=== PATIENT | male | born 1945 | race Caucasian/White ===

== ENCOUNTER 2021-09-25 08:30 | Emergency (ER) | payer MEDICARE, BC, SELFPAY ==
[2021-09-25 08:36] VITALS: BP 112/62; PULSE 70; RESP 16; O2SAT 95; BMI 22.6
--- NOTE | 2021-09-25 08:44 | ED.GENADULT ---
HPI - General Adult General Time Seen by Provider: 08:44 Date Seen: 09/25/21 Chief complaint: Extremity Pain/Injury, Upper Stated complaint: Middle right finger dislocated Time Seen by Provider: 09/25/21 08:43 Source: patient and RN notes reviewed Mode of arrival: ambulatory Limitations: no limitations History of Present Illness HPI narrative: Patient is a 76-year-old male presenting to the ER with complaint of right 3rd finger pain and deformity after a fall. He simply tripped. When he fell he injured this 3rd finger. There is an open wound on the palmar surface near the deformity. He did get an abrasion on his elbow and a bruise on his hip area but denies any pain within the bones themselves with ambulation. He did not hit his head, no loss of consciousness. No blood thinners. His only complaint is the right 3rd finger. He tried to reduce the deformity himself at home but could not. With initial evaluation of patient, I did try just a brief period of slight counter traction in this was not reducing easily; thus, reviewed with patient that we really needed to x-ray this prior to further manipulation. No difficulty breathing, no chest or abdominal pain. No neck or back pain. Tdap last given 04/15/2012. Thus patient will be given his Tdap as he is very close to the end of his current 10 year period. Onset (ago): minute(s) Treatments prior to arrival: none Related Data Previous Rx's Medication Instructions Recorded cephalexin 500 mg tablet 500 mg PO TID #15 tabs 09/25/21 Allergies Allergy/AdvReac Type Severity Reaction Status Date / Time ciprofloxacin [From Cipro] Allergy Verified 09/25/21 08:36 Review of Systems Status of ROS: Reports: 6 or more systems reviewed and unremarkable except as noted in History and below Exam Const: Vital Signs, click to edit/add: Vital Signs - 24 hr 09/25/21 08:36 Pulse Rate [Pulse Oximeter] 70 Respiratory Rate 16 Blood Pressure [Le ft Upper Arm] 112/62 Pulse Oximetry 95 Oxygen Delivery Me thod Room Air Documenting provider has reviewed patient's vital signs: yes Common normals: no apparent distress, average body habitus, oriented x3, no limitations, healthy appearing, alert and well nourished General appearance: cooperative, comfortable and well kempt HENMT: Common normals: normocephalic, head/scalp atraumatic, hearing grossly normal bilaterally and external ears normal Head and scalp: normocephalic and atraumatic External ear: external ears normal Eye: Common normals: PERRL, EOMs intact bilaterally, conjunctivae normal and no scleral icterus Conjunctiva: conjunctiva(e) normal Pupil: PERRL Resp: Common normals: normal respiratory effort, no retractions, no use of accessory muscles and clear to auscultation bilaterally Auscultation: clear to auscultation bilaterally Cardio: Common normals: regular rate, regular rhythm, S1 normal heart sound, S2 normal heart sound, no gallops, no clicks and no murmurs Rate: regular rate Rhythm: regular rhythm Heart sounds: S1 normal and S2 normal Extremity: Other: He has a deformity of his proximal right 3rd finger. This is not readily reducible. 5 mL of bupivacaine 0.25% were drawn up and given as a digital block. There is a little tissue opening on the palmar surface just around that PIP joint. There is some dried blood on this hand and this is an open wound of this right 3rd finger. He still had normal sensation distally of this finger before the digital block. My presumption is that this may be a fracture and not just a simple dislocation. Neuro: Common normals: oriented x3 Sensorium/orientation: alert Psych: Appearance: well kempt Course Course Hospital Course: We will await the digital block to take effect and obtain an x-ray of this right 3rd finger to visualize the abnormality. If there is a fracture, certainly will need antibiotics. Vital Signs Vital signs: Initial Vital Signs Temperature Source Temporal Artery Scan 09/25/21 08:36 Pulse Rate 70 09/25/21 08:36 Pulse Rhythm 09/25/21 08:36 Respiratory Rate 16 09/25/21 08:36 Blood Pressure 112/62 09/25/21 08:36 Blood Pressure Mean 78 09/25/21 08:36 Blood Pressure Position Supine 09/25/21 08:36 Pulse Oximetry 95 09/25/21 08:36 Oxygen Delivery Method 09/25/21 08:36 Vital Signs Pulse Rate 70 09/25/21 08:36 Respiratory Rate 16 09/25/21 08:36 Blood Pressure 112/62 09/25/21 08:36 Pulse Oximetry 95 09/25/21 08:36 Oxygen Delivery Method 09/25/21 08:36 Pulse Rate 70 09/25/21 08:36 Respiratory Rate 16 09/25/21 08:36 Blood Pressure 112/62 09/25/21 08:36 Pulse Oximetry 95 09/25/21 08:36 Oxygen Delivery Method 09/25/21 08:36 Medical Decision Making Imaging Data X-ray right 3rd finger: Attestation: I have reviewed the pertinent imaging results. My impression: Preliminary review of the x-ray shows dislocation at the PIP joint. I will wait radiology over read for full formal report. Radiologist's impression: Patient: JOVANA RIVERO Facility:?[facility] Patient ID:?[id number] Site Patient ID:?[id number]. Site :?[id number] Study:?XRay Extremity Right FINGER-09/25/2021 9:06:52 AM Ordering Physician:?Maximino Delgado Final Report: Indication: Trauma Technique: A total of three views of the right 3rd digit were acquired. Comparison: None Findings: Bones: There is a dorsal dislocation identified the PIP the right 3rd/middle finger. This is dorsal and deviated towards the ulnar side. An ossific fragment is noted anteriorly probably a volar plate avulsion injury. This is well corticated so it may be chronic. Joint spaces: Dislocation as above Soft tissues: Regional soft tissue swelling Impression: Dislocation at the PIP of the right 3rd/middle digit. Ossific fragment probably represents a volar plate fracture. That fragment is well corticated so the volar plate fracture may be nonacute Dictated by Alex Salvador MD @ 09/25/2021 9:11:32 AM (Electronic Signature) Post reduction imaging right 3rd finger: Attestation: I have reviewed the pertinent imaging results. Radiologist's impression: Patient: JOVANA RIVERO Facility:?[facility] Patient ID:?[id number] Site Patient ID:?[id number]. Site :?[id number] Study:?XRay Extremity Right FINGER 3RD DIGIT-09/25/2021 9:44:53 AM Ordering Physician:?Maximino Delgado Final Report: Indication: Postreduction Technique: Three views of the right 3rd digit were acquired Comparison: Earlier the same day Findings: The dislocation at the PIP of the right middle digit has been reduced. There is no fracture. The well corticated fragment thought to represent a fracture is no longer present and must have represented a foreign body in this area. Impression: Reduced dislocation. No fracture. Dictated by Alex Salvador MD @ 09/25/2021 9:55:49 AM (Electronic Signature) Critical Care Time Critical Care Time Critical Care Time: No Discharge Plan Discharge Clinical Impression: Dislocation of finger PIP joint Patient Disposition: Home, Self-Care Condition: Stable Instructions: Finger Dislocation (ED) Additional Instructions: May shower and wash hands but should otherwise keep this finger clean and dry. Watch the superficial wound on this finger to ensure it is not becoming infected. We will place you on antibiotics, please take them as prescribed. You need to use the splint until further advised by orthopedics. Please call the orthopedic office to get scheduled for followup and ongoing management of this finger. Phone number is [phone]. Recommend icing and elevating this finger for the next few days to help decrease swelling. May use Tylenol and ibuprofen per bottle directions if needed for discomfort. Prescriptions: New cephalexin 500 mg tablet 500 mg PO TID Qty: 15 0RF Follow Up/Referrals: James Silverio MD [Primary Care Provider] - Stand Alone [facility] Instructions Procedures Orthopedic Joint Reduction Joint #1: Time Out Performed: Yes Side: right Joint Reduction Location: finger (Right 3rd) Manipulation used?: Yes Analgesia: nerve block Local Anesthesia: bupivacaine 0.25% Amount of anesthesic used (mL): 5 Technique used: direct manipulation Post-reduction neuro vascular exam: intact Post Reduction X-Ray Obtained: Yes Post Reduction X-Ray Results: reduced Splint Applied: Yes (Large baseball splint) Patient Tolerated Procedure: well
--- NOTE | 2021-09-25 08:50 | CRLHL7_ITS ---
For Patients: As a result of the Cures Act, medical imaging exams and procedure reports are released immediately into your electronic medical record. You may view this report before your referring provider. If you have questions, please contact your health care provider. Indication: Trauma Technique: A total of three views of the right 3rd digit were acquired. Comparison: None Findings: Bones: There is a dorsal dislocation identified the PIP the right 3rd/middle finger. This is dorsal and deviated towards the ulnar side. An ossific fragment is noted anteriorly probably a volar plate avulsion injury. This is well corticated so it may be chronic. Joint spaces: Dislocation as above Soft tissues: Regional soft tissue swelling Impression: Dislocation at the PIP of the right 3rd/middle digit. Ossific fragment probably represents a volar plate fracture. That fragment is well corticated so the volar plate fracture may be nonacute Dictated by Alex Salvador MD @ 09/25/2021 9:11:32 AM (Electronically Signed)
[2021-09-25] MEDS: BUPIVACAINE 0.25% 30 ML 5 ML INJECTION (09:05)
--- NOTE | 2021-09-25 09:22 | CRLHL7_ITS ---
For Patients: As a result of the Cures Act, medical imaging exams and procedure reports are released immediately into your electronic medical record. You may view this report before your referring provider. If you have questions, please contact your health care provider. Indication: Postreduction Technique: Three views of the right 3rd digit were acquired Comparison: Earlier the same day Findings: The dislocation at the PIP of the right middle digit has been reduced. There is no fracture. The well corticated fragment thought to represent a fracture is no longer present and must have represented a foreign body in this area. Impression: Reduced dislocation. No fracture. Dictated by Alex Salvador MD @ 09/25/2021 9:55:49 AM (Electronically Signed)
[2021-09-25 10:15] VITALS: BP 123/64; PULSE 65; RESP 16; O2SAT 96
--- NOTE | 2021-09-25 10:15 | ED.NURSE ---
Patient's right middle finger cleansed with hibiclens/water solution. Bacitracin and bandaid applied. Baseball splint over finger with patient accepting of all treatments.
[2021-09-25] MEDS: TETANUS/DIPHTH/PERTUSSIS 0.5 ML SYRINGE IM (10:16)
== END 2021-09-25 10:25 | disposition home or self-care (01) ==
PROVIDERS: Emergency Provider Family Medicine; PCP Family Medicine
DX: S63.272A Dislocation of unspecified interphalangeal joint of right middle finger, initial encounter (principal); W01.0XXA Fall on same level from slipping, tripping and stumbling without subsequent striking against object, initial encounter
CPT/HCPCS: 26770; 73140; 90471; 90715; 96372; 99283; 99284; J3490

== ENCOUNTER 2021-11-14 13:00 | Outpatient (RCR) | payer MEDICARE, BC, SELFPAY ==
--- NOTE | 2021-11-04 12:35 | OT.OPOE ---
OT Outpatient Ortho Eval OT Outpatient Ortho Eval Start: 11/04/21 11:57 Freq: Status: Active Protocol: Document 11/04/21 12:04 NISREEN (Rec: 11/04/21 12:28 NISREEN [id number]) E-signed By Lucero Ortiz, OTR/L, CLT OT OP Ortho Eval Details Type Type Eval Complexity Low Outpatient History/Precautions Insurance Information Insurance Information Medicare B Current Condition/Medical Diagnosis Referring Provider Reid Roque PA-C Treatment Diagnosis open dislocation of R middle digit PIP Date of Onset 09/25/21 Other Precautions OT ordered for ROM, edema mgmt and brace as appropriate Medical Conditions CA Other Conditions has been evaluated by neurology, dx with repetitive exercise dystonia 4 years ago. and had a hyperextended R knee injury related to this. Walks with [employer] pole for distances. History of R shoulder dislocation about 2 years ago. Medical/Functional History Medical History Reviewed Yes Prior Level of Function/Mobility Pt injured his R MF PIP while out walking on 09/25/21, slipped on gravel, with open abrasion on hand during injury . Social History Employment Status Retired Current Occupation Retired from [employer] in 2005. Hobbies golf, travel/[employer] this last summer, fishing Fitness Walking, for 1-2 miles at a time, row machine at home. Oriented Mental Status No Concerns Mental Status Comments Pt lives with his in new housing area, scattered gravel patches. No animals. Has Grown children in [place] and [place]. Ortho Subjective Subjective Subjective Pat Matt is an active 76 y/o male who injured his R MF PIP while out walking on 09/25/21, slipped on gravel, with open abrasion on hand during his open dislocation of R middle digit PIP. It was out of position for 2 hours before relocation under anesthesia. Pain and edema are reducing, pt having residual stiffness. Pain Assessment Pain Present Pain Present Pain Reported Location R middle finger Description Tightness,Pressure,Dull, Achy, Throbbing,With Movement Intensity 3 Goniometric Comments Goniometric Comments Goniometric Comments Edema: Measures 6.8 cm at distal phalanx ( 6.1 L). At PIP 8.0 cm R and 6.8 cm L. Middle phalanx is 6.6R and 6.0 L. Composite AROM/flexion-- MF closes to .7 cm from distal palmar crease. RF full closure. R MF AROM-- MCP flexion to 90 of 95, PIP to 92 of 110 and DIP to 65 of 60. Clinical Manager Home [employer] tested carefully at 62# R and 61# L, no pain. 3 point pinch is 19.5 # and 19# L with no pain. OT Problems Problems Problems Decreased Range of Motion, Sensory Sensitivity,Lifting, Gripping,Pinching Other Problems Writing,Opening Containers, Fasteners Patient Potential Excellent Assessment Assessment Assessment Given Joo' s diagnosis of R middle finger open dislocation and ?difficulty with edema, pain, ROM and dexterity loss of R hand, they would benefit from skilled OT to address these areas. Occupational Therapy Treatment Plan - OP Potential Rehabilitation Potential Excellent Set Goals Goals Set with Patient Yes Goals Goals In 8 weeks, Joo will demonstrate:? 1) Decreased pn to <1/10 80% of the time with sustained gripping, carrying groceries, chopping food and golfing. 2) I HEP for stretching, gradual strengthening and self mgmt strategies. 3) Full r middle finger composite flexion to <.5 cm and improved in hand manipulation of pills, coins and use of kitchen tools. 4) ??Pt to be fit with functional bracing (for MF OVAL 8 size 14 issued 11/04/21 for protection during heavy tasks) and use adaptive strategies to protect joint integrity to support less pain with ADL. Target Date 01/04/22 Progress set Treatment Plan Treatment Plan Evaluation,Edema Control,Joint Mobilization,Manual Therapy, Paraffin Bath,Splinting, Therapeutic Exercise,Self-Care /Home Management,Education Expected Frequency 1-2x Week Expected Duration 6-8 Weeks Certification Certification I Certify That: Therapy Services Provided, Therapy Plan Established, Therapy Plan Reviewed
== END 2022-08-27 23:59 | disposition home or self-care (01) ==
PROVIDERS: PCP Family Medicine; Visit Provider Physician Assistant Surgical
DX: S63.289A Dislocation of proximal interphalangeal joint of unspecified finger, initial encounter (principal); Z51.89 Encounter for other specified aftercare
CPT/HCPCS: 97110; 97140; 97165; 97535; X5282

== ENCOUNTER 2022-11-05 09:00 | Outpatient (RCR) | payer MEDICARE, BC, SELFPAY | END 2022-11-30 13:57 | disposition home or self-care (01) | PROVIDERS: PCP Family Medicine; Visit Provider Family Medicine | DX: R29.898 Other symptoms and signs involving the musculoskeletal system (principal); M62.81 Muscle weakness (generalized); R26.9 Unspecified abnormalities of gait and mobility; Z51.89 Encounter for other specified aftercare | CPT/HCPCS: 97110; 97162; 97530 ==